=== PATIENT | female | born 1985 | race Caucasian/White ===

== ENCOUNTER → 2020-06-06 | Outpatient (REF) | payer BC ==
[2020-06-06 17:01] LABS: HEMATOCRIT 39.7 % (36.0-47.0); MEAN CORPUSCULAR HEMOGLOBIN 28.7 pg (27.0-33.0); MEAN CORPUSCULAR HGB CONC 32.7 g/dl (32.0-36.5); MEAN CORPUSCULAR VOLUME 87.6 fl (80.0-96.0); PLATELET COUNT, AUTOMATED 239 10^3/uL (150-450); RED BLOOD COUNT 4.53 10^6/uL (4.00-5.40); WHITE BLOOD COUNT 9.1 10^3/uL (4.0-10.0)
[2020-06-06 18:13] LABS: HEPATITIS C VIRUS ABY INDEX < 0.0 INDEX (<0.8); HIV 1&2 SCREEN CENTAUR NEGATIVE (NEGATIVE)
== END ==
LOC: M PLALAB 15:08
PROVIDERS: ATTEND Advanced Practice Midwife
DX: Z34.91 Encounter for supervision of normal pregnancy, unspecified, first trimester (principal); Z3A.08 8 weeks gestation of pregnancy

== ENCOUNTER → 2020-07-04 | Outpatient (REF) | payer BC ==
[2020-07-04 21:15] LABS: CHLAMYDIA DNA AMPLIFICATION NEGATIVE (NEGATIVE); GC DNA AMPLIFICATION NEGATIVE (NEGATIVE)
== END ==
LOC: M SFHCWAGY 17:01
PROVIDERS: ATTEND Advanced Practice Midwife
DX: Z3A.12 12 weeks gestation of pregnancy (principal)

== ENCOUNTER → 2020-08-01 | Outpatient (REF) | payer OTHER | LOC: M SFHCWAGY 14:16 | PROVIDERS: ATTEND Advanced Practice Midwife | DX: Z36.2 Encounter for other antenatal screening follow-up (principal); Z3A.08 8 weeks gestation of pregnancy ==

== ENCOUNTER → 2020-08-01 | Outpatient (CLI) | payer OTHER, BC | LOC: M PLALAB 08:54 | PROVIDERS: ATTEND Advanced Practice Midwife | DX: Z13.79 Encounter for other screening for genetic and chromosomal anomalies (principal) ==

== ENCOUNTER → 2020-08-21 | Outpatient (CLI) | payer BC ==
--- NOTE | 2020-08-21 09:32 | REP ---
INDICATION: ANATOMY COMPARISON: None. TECHNIQUE: Transabdominal obstetrical ultrasound with color Doppler evaluation. FINDINGS: Examination demonstrates a single live intrauterine in variable presentation. motion is identified by technologist. Placenta is noted posterior and grade 0 without evidence for placenta previa or abruption. Amniotic fluid volume is normal. Cervix measures 4.0 cm in length and appears closed.. Gestational age by LMP 19 weeks 3 days with ROXANNE 01/12/2021. Gestational age by current measurements 20 weeks 4 days with ROXANNE 01/04/2021. FHR equals 160 beats per minute. BPD: 4.7 cm at 20 weeks 0 days HC: 17.3 cm at there is 19 weeks 6 days AC: 16.6 cm at there is 21 weeks 5 days FL: 3.3 cm at there is 20 weeks 3 days HL: 3.3 cm at there is 20 weeks 6 days HC/AC: 1.04 Estimated weight 387 grams (greater than 97thpercentile based on age by known ROXANNE at 19 weeks 3 days). Anatomical assessment demonstrates normal structures including cranium, choroid plexus, cavum, cerebellum/posterior fossa, facial features, lungs, four-chamber heart/ventricular outflow tracts, diaphragm, stomach, cord insertion/three-vessel cord, spine, and extremities. Right kidney demonstrates severe hydronephrosis. Left kidney demonstrates mild pelviectasis. IMPRESSION: 1. Single live intrauterine in variable presentation. Based on given age by ROXANNE, estimated weight is greater than 97th percentile and warrants further evaluation. 2. Severe right hydronephrosis and mild left renal pelviectasis requires further investigation and follow-up. <Electronically signed by Arsh Watts > 08/21/20 [id number]
== END ==
LOC: M WHC 07:53
PROVIDERS: ATTEND Advanced Practice Midwife
DX: O09.512 Supervision of elderly primigravida, second trimester (principal); Z3A.20 20 weeks gestation of pregnancy

== ENCOUNTER → 2020-10-24 | Outpatient (REF) | payer OTHER ==
[2020-10-24 11:50] LABS: HEMATOCRIT 34.2 % (36.0-47.0); HEMOGLOBIN 10.8 g/dl (12.0-15.5); MEAN CORPUSCULAR HEMOGLOBIN 28.3 pg (27.0-33.0); MEAN CORPUSCULAR HGB CONC 31.6 g/dl (32.0-36.5); MEAN CORPUSCULAR VOLUME 89.8 fl (80.0-96.0); PLATELET COUNT, AUTOMATED 169 10^3/uL (150-450); RED BLOOD COUNT 3.81 10^6/uL (4.00-5.40); WHITE BLOOD COUNT 8.4 10^3/uL (4.0-10.0)
== END ==
LOC: M PLALAB 08:10
PROVIDERS: ATTEND Advanced Practice Midwife
DX: Z36.89 Encounter for other specified antenatal screening (principal); Z3A.24 24 weeks gestation of pregnancy

== ENCOUNTER → 2020-12-20 | Outpatient (REF) | payer OTHER | LOC: M SFHCWAGY 13:08 | PROVIDERS: ATTEND Advanced Practice Midwife | DX: Z36.89 Encounter for other specified antenatal screening (principal); Z3A.36 36 weeks gestation of pregnancy ==

== ENCOUNTER 2021-01-06 18:53 | Inpatient (IN) | payer BC, OTHER ==
[~2021-01-06] VITALS: Ht 172.7 cm; Wt 90.9 kg
[2021-01-06 19:10] VITALS: BP 123/83
[2021-01-06] MEDS ORDERED: PRENTAB9 PO (19:54)
[2021-01-06] MEDS ORDERED: HOME MED LIST COMPLETE! XX SCH (19:55)
[2021-01-06] MEDS ORDERED: FENTANYL 2MCG/ML ROPIVACAINE 0.2% IN 0.9% NACL 100ML IVBAG As Ordered ONE (20:05)
[2021-01-06] MEDS ORDERED: EPIDURAL COMMENT XX SCH (20:25)
[2021-01-06] MEDS ORDERED: NALOXONE INJ 0.4MG/1ML VIAL (J2310 PER 1MG) IV PRN (20:25)
[2021-01-06] MEDS ORDERED: LACTATED RINGER'S 1000 ML IV PRN (20:25)
[2021-01-06] MEDS ORDERED: FENTANYL/ROPIVACAINE/NACL BAG 100 ML EPIDURAL SCH (20:25)
[2021-01-06] MEDS ORDERED: EPIDURAL/PCA KEYS XX PRN (20:25)
[2021-01-06] MEDS ORDERED: ePHEDrine SULFATE 25 MG/5 ML(5MG/ML) SYRINGE IV PRN (20:25)
[2021-01-06] MEDS ORDERED: ONDANSETRON 4MG/2ML VIAL IV PRN (20:25)
[2021-01-06] MEDS ORDERED: diphenhydrAMINE 50MG/ML VIAL (J1200) IV PRN (20:25)
[2021-01-06] MEDS ORDERED: REFRIGERATOR IV KEYS XX PRN (20:25)
[2021-01-06] MEDS ORDERED: OXYTOCIN 30 UNITS IN 0.9% NaCl 500ML IV BAG (J2590) As Ordered ONE (20:28)
[2021-01-06 20:29] LABS: HEMATOCRIT 37.2 % (36.0-47.0); MEAN CORPUSCULAR HEMOGLOBIN 27.2 pg (27.0-33.0); MEAN CORPUSCULAR HGB CONC 32.3 g/dl (32.0-36.5); MEAN CORPUSCULAR VOLUME 84.4 fl (80.0-96.0); PLATELET COUNT, AUTOMATED 175 10^3/uL (150-450); RED BLOOD COUNT 4.41 10^6/uL (4.00-5.40); WHITE BLOOD COUNT 10.5 10^3/uL (4.0-10.0)
[2021-01-06] MEDS ORDERED: LIDOCAINE 1% MDV 20ML VIAL As Ordered ONE (20:34)
[2021-01-06] MEDS ORDERED: ACETAMINOPHEN TAB 650MG DOSE (2X325MG) PO PRN (21:20)
[2021-01-06] MEDS ORDERED: MOM 30ML SUSPENSION UDC PO PRN (21:20)
[2021-01-06] MEDS ORDERED: MEASLES,MUMPS,RUBELLA VACCINE INJ (MMR-II) (90707) SC SCH (21:20)
[2021-01-06] MEDS ORDERED: IBUPROFEN 600MG TAB PO PRN (21:20)
[2021-01-06] MEDS ORDERED: METHYLERGONOVINE MALEATE 0.2 MG TAB PO PRN (21:20)
[2021-01-06] MEDS ORDERED: DOCUSATE SODIUM 100MG CAPSULE PO PRN (21:20)
[2021-01-06] MEDS ORDERED: RHOGAM 300 MCG (1500 IU) INJ (J2790) IM SCH (21:20)
[2021-01-06] MEDS ORDERED: OXYTOCIN DRIP 30 UNITS in IV 1 EA IV SCH (21:20)
[2021-01-06] MEDS ORDERED: ANUSOL HC CREAM 30GM TOP PRN (21:20)
[2021-01-06] MEDS ORDERED: DIBUCAINE 1% OINTMENT 30GM TOP PRN (21:20)
[2021-01-06] MEDS ORDERED: ACETAMINOPHEN 500 MG TAB PO PRN (21:20)
--- NOTE | 2021-01-06 22:24 | HPEPDOC ---
Obstetrical History & Physical General Date of Admission Jan 06, 2021 at 19:39 History of Present Illness 35yo at 39w1d, presents with c/o contractions. Chief Complaint: Contractions, term Information Provided By: Patient Age: 35 : 3 Term: 2 Livin Care Care: Good Care Dating Final EDC by: LMP EGA at Admission: 39 Past Medical History Past Obstetrical History #1: Date of Delivery: Jan 14, 2016 Type of Delivery: Spontaneous Vaginal Del. Sex of : Male Complications: No Past Obstetrical History #2: Date of Delivery: Mar 10, 2018 Type of Delivery: Spontaneous Vaginal Del. 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 BREAST: . ABDOMEN: Gravid and non-tender to touch. FETUS: Is vertex (VTX) by sterile vaginal examination (SVE), fetus is vertex (VTX) by John. HEART RATE: Regular rate and rhythm. LUNGS: Clear to auscultation (CTA). Vital Signs/I&O Vital Signs Date Time Temp Pulse Resp B/P (MAP) Pulse Ox O2 Delivery O2 Flow Rate FiO2 01/06/21 19:10 98.0 77 20 123/83 (96) Laboratory Data 24H LABS Laboratory Tests 2 01/06/21 19:44: Serology Scanned Report Hepatitis B Testing 01/06/21 19:55: Nucleated Red Blood Cells % (auto) 0.0 CBC/BMP Laboratory Tests 01/06/21 19:55 Pertinent Laboratoy Data Blood Type: O+ RBC Antibody Screen: Negative HIV: Negative Hepatitis B: Negative Hepatitis C: Negative Rapid Plasma Reagin: Nonreactive Rubella: Immune Chlamydia/Gonorrhea: Negative Group B Streptococcus: Negative Glucose Tolerance Test: 98 Anatomy Ultrasound Ultrasound Date: Sep 07, 2020 Normal Anatomy: No (Right kidney enlarged with lossof normal internal architecture. Right renal pelvis 12.7mm.) Placenta Previa: No Vaginal Examination Dilation: 6 cm Effacement: 80% Station: -1 Cervical Consistency: Soft Cervical Position: Anterior Presentation: Cephalic presentation Assessment Variability: Moderate Accelerations: Positive Tocometer Contractions: Yes Frequency: regular Assessment/Plan Assessment 35yo at 39w1d in active labor Reassuring status Plan Admit and orient. Manager [employer] and consent. Group B Streptococcus (GBS) negative. Labs and intravenous (IV) per unit protocol. Counseled on Pitocin and induction of labor (IOL). Anticipate normal spontaneous delivery (). C-S as appropriate. JABIER KHAN MD. Jan 06, 2021 22:24
--- NOTE | 2021-01-06 22:28 | DNPDOC ---
[facility] Delivery Note Delivery Note DATE OF DELIVERY: 01/06/2021 TIME OF : 2030 GENDER: Female APGARS: 9 and 9. WEIGHT: 4010 g or 8 lbs. 13 oz. LACERATIONS: 1MLL ANESTHESIA: none ESTIMATED BLOOD LOSS: 200ml COUNTS: 5 laparotomy sponges accounted for prior to after delivery. 2 sharps removed from delivery field. DELIVERY NOTE: On 01/06/2021 at 2030 Harvey a 35-year-old 3 now para 3 had a spontaneous vaginal delivery of liveborn female infant Apgars 9 and 9 and weight 6 lbs. 13 oz. 4010 g. Head was delivered occiput anterior (OA), followed by delivery of the shoulders and corpus. was handed to mom with a good cry. Cord was clamped times two and was cut by support person under my direction. Placenta was then drained and delivered grossly intact. A premixed bag of 500 mL of normal saline with 30 units of Pitocin was then bolused along with uterine massage until the uterus was firm. On inspection there was a 1MLL that was repaired with 3-0 Vicryl after infusion with 1% lidocaine. On reinspection, cervix, vagina, perineum was grossly intact and hemostatic. Mom and baby in recovery on stable condition. JABIER KHAN MD. Jan 06, 2021 22:27
[2021-01-06 22:40] VITALS: BP 138/84
[2021-01-06] MEDS: IBUPROFEN 800 MG TAB PO PRN (22:57)
[2021-01-07] MEDS ORDERED: LIDOCAINE 1% MDV 20ML VIAL SC ONE (02:40)
[2021-01-07 06:02] VITALS: BP 102/60
[2021-01-07] MEDS: PRENATAL VITAMINS CHEWABLE TABLET PO SCH (07:22)
[2021-01-07] MEDS: IBUPROFEN 800 MG TAB PO PRN ×2 (07:23→15:06)
--- NOTE | 2021-01-07 12:19 | IPNPDOC ---
Progress Note Date of Service: Jan 07, 2021 Day#: 1 Progress Note SUBJECT: Doing well without complaints. Ambulating, voiding and pain is well- controlled. Reports minimal lochia. OBJECTIVE: VITAL SIGNS: Within normal limits, afebrile. Alert and oriented times three. Abdomen: Fundus firm at U-2. Soft, NTTP. Ext: neg calf tenderness. ASSESSMENT: day #1 status post . Recovering in stable condition. PLAN: 1. Continue routine care 2. Discharge plans for tomorrow VS, I&O, 24H, Fishbone Vital Signs/I&O Vital Signs Date Time Temp Pulse Resp B/P (MAP) Pulse Ox O2 Delivery O2 Flow Rate FiO2 01/07/21 06:02 97.8 72 14 102/60 (74) 97 Room Air I&O- Last 24 Hours up to 6 AM 01/07/21 06:00 Output Total 200 ml Balance -200 ml Laboratory Data 24H LABS Laboratory Tests 2 01/06/21 19:44: Serology Scanned Report Hepatitis B Testing 01/06/21 19:55: Nucleated Red Blood Cells % (auto) 0.0 CBC/BMP Laboratory Tests 01/06/21 19:55 JABIER KHAN MD. Jan 07, 2021 12:19
[2021-01-07 18:00] VITALS: BP 127/74
[2021-01-08] MEDS: IBUPROFEN 800 MG TAB PO PRN ×2 (00:37→09:22)
[2021-01-08 06:00] VITALS: BP 118/58
[2021-01-08] MEDS ORDERED: ACET-683 PO (06:51)
[2021-01-08] MEDS ORDERED: IBUP80TA PO (06:51)
[2021-01-08] MEDS: PRENATAL VITAMINS CHEWABLE TABLET PO SCH (08:03)
== END 2021-01-08 13:05 | disposition home or self-care (01) | DRG 560 ==
LOC: M LDO 18:53 → M LDI 19:39 → M OBS 22:40
PROVIDERS: ADMIT Obstetrics & Gynecology; ATTEND Obstetrics & Gynecology
PROC: 10E0XZZ Delivery of Products of Conception, External Approach (ICD-10-PCS; principal; 2021-01-06)
PROC: 0HQ9XZZ Repair Perineum Skin, External Approach (ICD-10-PCS; 2021-01-06)
DX: O70.0 First degree perineal laceration during delivery (principal); Z37.0 Single live birth; Z3A.39 39 weeks gestation of pregnancy; O09.523 Supervision of elderly multigravida, third trimester

== ENCOUNTER → 2021-05-02 | Outpatient (REF) | payer BC ==
[~2021-05-02] MED LIST: ACET-683 PO; ACET-897 PO; CLIN150C17 PO; IBUP80TA PO; PREN1CHW6 PO; PRENTAB9 PO
== END ==
LOC: M SFHCWAGY 17:09
PROVIDERS: ATTEND Obstetrics & Gynecology
DX: Z01.419 Encounter for gynecological examination (general) (routine) without abnormal findings (principal)

== ENCOUNTER → 2021-05-07 | Outpatient (REF) | LOC: M EMP 08:08 | PROVIDERS: ATTEND Family Medicine | DX: Z20.822 Contact with and (suspected) exposure to COVID-19 (principal) ==

== ENCOUNTER → 2021-07-23 | Outpatient (REF) | LOC: M LABSMTC 09:26 | PROVIDERS: ATTEND Family Medicine | DX: Z20.822 Contact with and (suspected) exposure to COVID-19 (principal) ==

== ENCOUNTER → 2022-03-20 | Outpatient (REF) ==
[2022-03-20 14:10] LABS: RSV AMPLIFICATION NEGATIVE (NEGATIVE)
== END ==
LOC: M EMP 12:42
PROVIDERS: ATTEND Family Medicine
DX: Z11.52 Encounter for screening for COVID-19 (principal)

== ENCOUNTER → 2023-04-21 | Outpatient (REF) ==
[2023-04-21 14:46] LABS: INFLUENZA A AMPLIFICATION NEGATIVE (NEGATIVE); INFLUENZA B AMPLIFICATION NEGATIVE (NEGATIVE)
== END ==
LOC: M EMP 13:54
PROVIDERS: ATTEND Family Medicine
DX: Z20.828 Contact with and (suspected) exposure to other viral communicable diseases (principal)

== ENCOUNTER → 2023-04-21 | Outpatient (REF) | LOC: M EMP 08:37 | PROVIDERS: ATTEND Family Medicine | DX: Z11.52 Encounter for screening for COVID-19 (principal) ==

== ENCOUNTER 2024-02-12 12:05 | Emergency (ER) | payer BC, SELFPAY ==
[~2024-02-12] VITALS: Ht 172.7 cm; Wt 93.0 kg
[2024-02-12 14:19] LABS: BASO # 0.1 10^3/uL (0.0-0.2); BASO % 0.7 % (0.0-1.0); EOS % 10.8 % (0.0-3.0); HEMATOCRIT 40.3 % (36.0-47.0); HEMOGLOBIN 13.4 g/dl (12.0-15.5); LYMPH # 2.3 10^3/uL (1.5-5.0); LYMPH % 25.9 % (24.0-44.0); MEAN CORPUSCULAR HEMOGLOBIN 27.9 pg (27.0-33.0); MEAN CORPUSCULAR HGB CONC 33.3 g/dl (32.0-36.5); MONO # 0.6 10^3/uL (0.0-0.8); MONO % 6.3 % (2.0-8.0); NEUTROPHILS % 55.7 % (36.0-66.0); PLATELET COUNT, AUTOMATED 232 10^3/uL (150-450)
[2024-02-12 14:43] LABS: LIPASE 34 U/L (12-53)
[2024-02-12 14:46] LABS: ALBUMIN 3.9 G/DL (3.2-5.2); ALKALINE PHOSPHATASE 71 U/L (46-116); ALT/SGPT 21 U/L (7.0-40); AST/SGOT 11 U/L (<34); BILIRUBIN,DIRECT 0.2 MG/DL (<0.4); BILIRUBIN,TOTAL 0.7 MG/DL (0.3-1.2); TOTAL PROTEIN 7.4 G/DL (5.7-8.2)
[2024-02-12 14:54] LABS: HCG, SERUM QUALITATIVE NEGATIVE (NEGATIVE)
[2024-02-12] MEDS ORDERED: [UNRECOGNIZED DRUG - CODE] PO (15:28)
[2024-02-12] MEDS ORDERED: OMEP40CA4 PO (15:28)
[2024-02-12 15:45] VITALS: BP 130/67; TEMP 99; O2SAT 99
== END 2024-02-12 15:53 | disposition home or self-care (01) ==
LOC: M ED 12:05
DX: K29.00 Acute gastritis without bleeding (principal); K21.9 Gastro-esophageal reflux disease without esophagitis; Z79.1 Long term (current) use of non-steroidal anti-inflammatories (NSAID); Z79.899 Other long term (current) drug therapy

== ENCOUNTER → 2024-02-13 | Outpatient (REF) | payer SELFPAY ==
[~2024-02-13] MED LIST changes: +OMEP40CA4 PO; +[UNRECOGNIZED DRUG - CODE] PO
== END ==
LOC: M LAB REF 14:31
PROVIDERS: ATTEND Nurse Practitioner Family
DX: K29.00 Acute gastritis without bleeding (principal)